=== PATIENT | male | born 2000 | race Caucasian/White ===

== ENCOUNTER 2020-05-09 08:15 | Emergency (ER) | payer OTHER ==
[~2020-05-09] VITALS: Ht 188 cm; Wt 72.9 kg
[2020-05-09] MEDS ORDERED: NS 1,000 ML IV ONE (08:30)
[2020-05-09 09:09] LABS: HEMATOCRIT 46.3 % (42.0-52.0); HEMOGLOBIN 15.8 g/dl (13.5-17.5); MEAN CORPUSCULAR HEMOGLOBIN 29.7 pg (27.0-33.0); MEAN CORPUSCULAR HGB CONC 34.1 g/dl (32.0-36.5); PLATELET COUNT, AUTOMATED 237 10^3/uL (150-450); RED BLOOD COUNT 5.32 10^6/uL (4.30-6.10); WHITE BLOOD COUNT 7.6 10^3/uL (4.0-10.0)
[2020-05-09 09:38] VITALS: BP 129/57
--- NOTE | 2020-05-29 10:02 | ECGEPIP ---
[facility] - ED Test Date: 2020-05-09 Pat Name: KATHY POLLARD Department: Room: - Gender: Male Emergency Telecommunications Dispatcher: KELVIN : [id number] Requested By: Lisseth Goodrich Order Number: [id number] Reading MD: Lisseth Goodrich Measurements Intervals [place] Rate: 59 P: 10 CT: 160 QRS: 75 QRSD: 100 T: 32 QT: 381 QTc: 378 Interpretive Statements SINUS BRADYCARDIA WITH MARKED SINUS ARRHYTHMIA POSSIBLE RIGHT VENTRICULAR CONDUCTION DELAY ST ELEVATION CONSISTENT WITH INJURY, PERICARDITIS, OR EARLY REPOLARIZATION ABNORMAL ECG SEE SCANNED DOWNTIME REPORT
== END 2020-05-09 09:41 | disposition home or self-care (01) ==
LOC: M ED 08:15
DX: R55 Syncope and collapse (principal)

== ENCOUNTER 2021-10-06 10:20 | Day surgery (SDC) | payer OTHER ==
[~2021-10-06] VITALS: Ht 188 cm; Wt 81.1 kg
[~2021-10-06 10:20] MED LIST: NS 1,000 ML IV ONE
[2021-10-06] MEDS ORDERED: propofoL 200 MG/20 ML VIAL As Ordered ONE ×2 (11:19→11:59)
[2021-10-06] MEDS ORDERED: LIDOCAINE 2% MDV 20ML VIAL As Ordered ONE (11:19)
[2021-10-06 12:48] VITALS: BP 119/66
== END 2021-10-06 13:10 | disposition home or self-care (01) ==
LOC: M OPP 10:20
PROVIDERS: ATTEND Internal Medicine Gastroenterology
DX: R93.3 Abnormal findings on diagnostic imaging of other parts of digestive tract (principal); K64.8 Other hemorrhoids; Z87.891 Personal history of nicotine dependence